=== PATIENT | female | born 1970 | race Hispanic/Latino ===

== ENCOUNTER 2022-12-02 17:45 | Inpatient (IN) | payer BC ==
[~2022-12-02] VITALS: Ht 162.6 cm; Wt 75.3 kg
[2022-12-02] MEDS ORDERED: DiphenhydrAMINE HCL 50 MG/ML VIAL ONE (20:38)
[2022-12-02 23:16] LABS: CREATININE 1.5 mg/dL (0.5-1.5); POTASSIUM 3.6 mmol/L (3.5-5.1)
[2022-12-02] MEDS ORDERED: 0.9% NACL 500ML IV.SOLN 500 ML IV ONE (23:30)
[2022-12-02 23:45] LABS: BASOPHILS # (AUTO) 0.03 K/uL (0.00-0.20); BASOPHILS % (AUTO) 1.1 % (0.0-5.0); EOSINOPHILS # (AUTO) 0.04 K/uL (0.00-0.70); EOSINOPHILS % (AUTO) 1.5 % (0.0-8.0); IMMATURE GRANULOCYTE ABSOLUTE 0.01 K/uL (0-1); LYMPHOCYTES # (AUTO) 0.5 K/uL (1.0-4.8); LYMPHOCYTES % (AUTO) 17.6 % (21.0-51.0); MEAN CORPUSCULAR HEMOGLOBIN 14.5 pg (27.0-33.0); MEAN CORPUSCULAR HGB CONC 24.8 g/dL (32.0-36.0); MEAN CORPUSCULAR VOLUME 58.7 fL (79-99); MONOCYTES # (AUTO) 0.6 K/uL (0.1-1.0); NEUTROPHILS # (AUTO) 1.6 K/uL (1.8-7.7); NEUTROPHILS % (AUTO) 58.4 % (40.0-77.0); PLATELET COUNT (AUTO) 221 K/uL (130-400); RED BLOOD CELL COUNT(AUTO) 3.44 MIL/uL (4.00-5.50); RED CELL DISTRIBUTION WIDTH 21.1 % (11.0-15.5); WHITE BLOOD COUNT (AUTO) 2.7 K/uL (4.8-10.8)
[2022-12-02] MEDS ORDERED: IOHEXOL 350 MG/ML 100ML INFUS..BTL IV ONE (23:46)
[2022-12-02 23:49] LABS: HEMATOCRIT 20.2 % (36-48)
[2022-12-03] VITALS (7 sets, daily range): BP systolic 164–179; BP diastolic 69–84; PULSE 65–85; RESP 16–20; TEMP 98.8; O2SAT 98
[2022-12-03] MEDS ORDERED: ONDANSETRON 4MG INJ IVP ONE (00:30)
[2022-12-03] MEDS ORDERED: MORPHINE 2 MG SYG IVP ONE (00:30)
[2022-12-03] MEDS ORDERED: LACTATED RINGERS 1000ML 500 ML IV ONE (00:30)
[2022-12-03 00:42] LABS: HCG,QUALITATIVE URINE NEGATIVE (NEGATIVE)
[2022-12-03 00:47] LABS: APPEARANCE,URINE CLEAR (CLEAR); BILIRUBIN,URINE NEGATIVE (NEGATIVE); COLOR,URINE YELLOW (YELLOW); GLUCOSE, URINE (UA) NEGATIVE (NEGATIVE); KETONES,URINE NEGATIVE (NEGATIVE); LEUKOCYTE ESTERASE ,URINE NEGATIVE Leu/uL (NEGATIVE); NITRATE,URINE NEGATIVE (NEGATIVE); OCCULT BLOOD,URINE LARGE (NEGATIVE); PROTEIN,URINE 30 mg/dL (NEGATIVE); UROBILINOGEN,URINE 0.2 mg/dL (0.2-1.0)
[2022-12-03 00:50] LABS: ADD UA MICROSCOPIC YES
[2022-12-03 00:53] LABS: BACTERIA,URINE RARE /HPF (None Seen); MUCUS,URINE RARE LPF (None Seen); SQUAMOUS EPITHELIAL CELL,UR FEW /HPF (0-2)
[2022-12-03 01:03] LABS: RETICULOCYTE % (AUTO) 0.96 % (0.42-2.23)
[2022-12-03 01:22] LABS: BAND NEUTROPHILS % (MANUAL) 4 % (0-2); BASOPHILS % (MANUAL) 3 % (0-2); EOSINOPHILS % (MANUAL) 1 % (1-6); LYMPHOCYTES % (MANUAL) 15 % (22-44); MAN.DIFF COMMENT-IMPRESSION MANUAL DIFFERENTIAL; MONOCYTES % (MANUAL) 17 % (2-9); REACTIVE LYMPHOCYTES 2 % (0-0); SEGMENTED NEUTROPHILS % 58 % (40-70); TOTAL CELLS COUNTED 100; WBC MORPHOLOGY REACTIVE LYMPHS 1+
[2022-12-03] MEDS ORDERED: ONDANSETRON 4MG INJ IVP PRN ×2 (01:30→02:00)
[2022-12-03] MEDS ORDERED: ACETAMINOPHEN 325 MG TAB PO PRN (02:00)
[2022-12-03 02:09] LABS: % IRON SATURATION 1.6 % (22-44)
[2022-12-03 06:23] LABS: SARS-CoV-2, RNA, NAAT POSITIVE SARS CoV-2 (NEGATIVE)
[2022-12-03 06:29] LABS: INFLUENZA TYPE A Negative For Type A (NEGATIVE); INFLUENZA TYPE B Negative For Type B (NEGATIVE)
[2022-12-03] MEDS: ACETAMINOPHEN 325 MG TAB PO PRN ×3 (06:41→20:51)
[2022-12-03 09:14] LABS: BASOPHILS # (AUTO) 0.02 K/uL (0.00-0.20); BASOPHILS % (AUTO) 0.7 % (0.0-5.0); EOSINOPHILS # (AUTO) 0.03 K/uL (0.00-0.70); HEMATOCRIT 25.5 % (36-48); LYMPHOCYTES # (AUTO) 1.3 K/uL (1.0-4.8); LYMPHOCYTES % (AUTO) 41.5 % (21.0-51.0); MEAN CORPUSCULAR HEMOGLOBIN 18.8 pg (27.0-33.0); MEAN CORPUSCULAR HGB CONC 28.6 g/dL (32.0-36.0); MEAN CORPUSCULAR VOLUME 65.7 fL (79-99); MONOCYTES # (AUTO) 0.7 K/uL (0.1-1.0); MONOCYTES % (AUTO) 22.3 % (3.0-13.0); NEUTROPHILS % (AUTO) 34.5 % (40.0-77.0); PLATELET COUNT (AUTO) 221 K/uL (130-400); RED BLOOD CELL COUNT(AUTO) 3.88 MIL/uL (4.00-5.50)
[2022-12-03 09:22] LABS: CREATININE 1.4 mg/dL (0.5-1.5); POTASSIUM 3.6 mmol/L (3.5-5.1)
[2022-12-03 09:26] LABS: ALBUMIN 2.9 g/dL (3.5-5.0); BILIRUBIN,TOTAL 0.9 mg/dL (0.2-1.0); TOTAL PROTEIN, SERUM 7.5 g/dL (6.0-8.3)
[2022-12-03 12:29] LABS: HEMATOCRIT 27.2 % (36-48)
[2022-12-03] MEDS ORDERED: COMPOUND IV REFRIGERATED 1 EACH IVSOLN MISC PRN (15:00)
[2022-12-03] MEDS ORDERED: COMPOUND IV MISC 1 EACH IVSOLN MISC PRN (15:30)
[2022-12-03] MEDS: IRON SUCROSE COMPLEX 300 MG in 0.9% NACL 250ML 250 ML IV SCH (15:45)
[2022-12-04] VITALS (8 sets, daily range): BP systolic 151–168; BP diastolic 63–87; PULSE 65–80; RESP 16–19; O2SAT 97–98
[2022-12-04 05:13] LABS: HEMATOCRIT 26.3 % (36-48); MEAN CORPUSCULAR HEMOGLOBIN 18.5 pg (27.0-33.0); MEAN CORPUSCULAR HGB CONC 27.4 g/dL (32.0-36.0); MEAN CORPUSCULAR VOLUME 67.6 fL (79-99); RED BLOOD CELL COUNT(AUTO) 3.89 MIL/uL (4.00-5.50); RED CELL DISTRIBUTION WIDTH 26.8 % (11.0-15.5); WHITE BLOOD COUNT (AUTO) 4.9 K/uL (4.8-10.8)
[2022-12-04 05:23] LABS: CREATININE 1.5 mg/dL (0.5-1.5)
[2022-12-04] MEDS ORDERED: IRON SUCROSE COMPLEX 300 MG in 0.9% NACL 250ML 250 ML IV ONE (09:00)
[2022-12-04] MEDS: ACETAMINOPHEN 325 MG TAB PO PRN (12:16)
[2022-12-04] MEDS: IRON SUCROSE COMPLEX 300 MG in 0.9% NACL 250ML 250 ML IV SCH (16:47)
[2022-12-05] MEDS: ACETAMINOPHEN 325 MG TAB PO PRN ×2 (03:23→11:35)
[2022-12-05 05:00] VITALS: BP 170/77; PULSE 62; RESP 16
[2022-12-05 05:43] LABS: HEMATOCRIT 33.1 % (36-48); MEAN CORPUSCULAR HEMOGLOBIN 19.9 pg (27.0-33.0); MEAN CORPUSCULAR HGB CONC 28.4 g/dL (32.0-36.0); MEAN CORPUSCULAR VOLUME 70.1 fL (79-99); NUCLEATED RED BLOOD CELLS 0.4 % (0.0-0.19); RED BLOOD CELL COUNT(AUTO) 4.72 MIL/uL (4.00-5.50); WHITE BLOOD COUNT (AUTO) 4.5 K/uL (4.8-10.8)
[2022-12-05 05:53] LABS: CREATININE 1.2 mg/dL (0.5-1.5); MAGNESIUM 1.9 mg/dL (1.80-2.40)
[2022-12-05 08:00] VITALS: BP 174/93; PULSE 68; RESP 17
[2022-12-05 08:10] VITALS: O2SAT 96
[2022-12-05 12:00] VITALS: BP 183/67; PULSE 73; RESP 18
[2022-12-05 15:40] VITALS: BP 157/69; PULSE 63; RESP 17
[2022-12-05] MEDS: IRON SUCROSE COMPLEX 300 MG in 0.9% NACL 250ML 250 ML IV SCH (16:16)
[2022-12-05 20:38] VITALS: BP 150/67; PULSE 80; RESP 18
[2022-12-06] MEDS ORDERED: FOLIC ACID 1 MG TABLET PO SCH (09:00)
== END 2022-12-05 21:00 | disposition home or self-care (01) | DRG 811 ==
LOC: EDH 17:45 → EDHIP 12-03 01:38 → 3CH 12-03 09:18
PROVIDERS: ADMIT Internal Medicine Infectious Disease; ATTEND Internal Medicine Infectious Disease
PROC: 30233N1 Transfusion of Nonautologous Red Blood Cells into Peripheral Vein, Percutaneous Approach (ICD-10-PCS; principal; 2022-12-03)
DX: D50.9 Iron deficiency anemia, unspecified (principal); U07.1 COVID-19; N17.9 Acute kidney failure, unspecified; D72.819 Decreased white blood cell count, unspecified; N72 Inflammatory disease of cervix uteri; N92.0 Excessive and frequent menstruation with regular cycle
CPT/HCPCS: 36415; 36430; 74178; 76830; 80048; 80053; 81001; 81025; 82607; 82728; 83735; 85007; 85014; 85018; 85025; 85027; 86850; 86900; 86901; 86923; 87040; 87486; 87635; 87797; 87804; G0378; J1200; J1756; J2270; J2405; J7040; J7050; J7120; P9016; Q9967

== ENCOUNTER 2023-01-11 22:58 | Emergency (ER) | payer BC ==
[~2023-01-11] VITALS: Ht 162.6 cm; Wt 75.7 kg
[2023-01-12] LABS: CREATININE 1.3 mg/dL (0.5-1.5); POTASSIUM 4.5 mmol/L (3.5-5.1)
[2023-01-12 00:02] LABS: BASOPHILS # (AUTO) 0.06 K/uL (0.00-0.20); BASOPHILS % (AUTO) 1.3 % (0.0-5.0); EOSINOPHILS # (AUTO) 0.66 K/uL (0.00-0.70); HEMATOCRIT 36.6 % (36-48); LYMPHOCYTES # (AUTO) 2.1 K/uL (1.0-4.8); LYMPHOCYTES % (AUTO) 44.4 % (21.0-51.0); MEAN CORPUSCULAR HEMOGLOBIN 25.1 pg (27.0-33.0); MEAN CORPUSCULAR HGB CONC 31.4 g/dL (32.0-36.0); MEAN CORPUSCULAR VOLUME 79.7 fL (79-99); MONOCYTES # (AUTO) 0.7 K/uL (0.1-1.0); MONOCYTES % (AUTO) 13.7 % (3.0-13.0); NEUTROPHILS # (AUTO) 1.3 K/uL (1.8-7.7); NEUTROPHILS % (AUTO) 26.6 % (40.0-77.0); PLATELET COUNT (AUTO) 146 K/uL (130-400); RED BLOOD CELL COUNT(AUTO) 4.59 MIL/uL (4.00-5.50); WHITE BLOOD COUNT (AUTO) 4.7 K/uL (4.8-10.8)
[2023-01-12 00:05] LABS: ALBUMIN 3.5 g/dL (3.5-5.0); BILIRUBIN,TOTAL 0.3 mg/dL (0.2-1.0); TOTAL PROTEIN, SERUM 8.4 g/dL (6.0-8.3)
[2023-01-12] MEDS ORDERED: FERR-82 PO (00:49)
[2023-01-12] MEDS ORDERED: CALC-131 PO (00:49)
[2023-01-12 01:30] VITALS: BP 127/70; PULSE 72; RESP 16; O2SAT 100
== END 2023-01-12 01:39 | disposition home or self-care (01) ==
LOC: EDH 22:58
DX: D64.9 Anemia, unspecified (principal); I10 Essential (primary) hypertension; Z90.49 Acquired absence of other specified parts of digestive tract
CPT/HCPCS: 36415; 80053; 85025; 93005